=== PATIENT | male | born 2000 | race Hispanic/Latino ===

== ENCOUNTER → 2021-05-05 | Day surgery (SDC) | payer OTHER, SELFPAY ==
[~2021-05-05] MED LIST: DULCOLAX5 MG PO; FENTANYL CITRATE/PF 100MCG/2 ML INJ ONE; GLUCAGON FOR INJ 1 MG VIAL ONE; GLYCOPYRROLATE INJ 0.2 MG/ML VIAL ONE; LIDOCAINE HCL 2% LOCAL INJ 5 ML SDV VIAL INJ ONE; MIDAZOLAM HCL 2 MG/2 ML VIAL ONE; MIRALAX17 GM PO; NEOSTIGMINE 1 MG/ML 10ML VIAL ONE; PROPOFOL IV EMULSION 10 MG/ML 20 ML VIAL ONE; [UNRECOGNIZED DRUG - OTHER] PO
[2021-05-05 18:10] VITALS: BP 124/77
== END | disposition home or self-care (01) ==
LOC: OR 14:57
PROVIDERS: ATTEND Internal Medicine Gastroenterology
DX: K29.70 Gastritis, unspecified, without bleeding (principal); K20.90 Esophagitis, unspecified without bleeding; K59.09 Other constipation; K64.8 Other hemorrhoids; K62.5 Hemorrhage of anus and rectum; Z71.3 Dietary counseling and surveillance; R63.0 Anorexia; F41.9 Anxiety disorder, unspecified; Z01.812 Encounter for preprocedural laboratory examination; Z01.818 Encounter for other preprocedural examination; Z20.822 Contact with and (suspected) exposure to COVID-19; Z86.16 Personal history of COVID-19; Z80.0 Family history of malignant neoplasm of digestive organs
CPT/HCPCS: 36415; 43239; 45378; 74018; 84443; C9113; J1610; J2001; J2250; J2704; J2710; J3010; U0002